=== PATIENT | female | born 1950 | race Caucasian/White ===

== ENCOUNTER 2020-12-08 09:10 | Day surgery (SDC) | payer MEDICARE, OTHER ==
[~2020-12-08] VITALS: Ht 152.4 cm; Wt 75.7 kg
[2020-12-08] VITALS (17 sets, daily range): BP systolic 110–174; BP diastolic 50–108; PULSE 59–99; TEMP 98.3
[2020-12-08] MEDS ORDERED: ZESTORETIC 12.51 TA1 PO (09:24)
[2020-12-08] MEDS ORDERED: SYNTHROID0.075 MG/T PO (09:24)
[2020-12-08] MEDS ORDERED: MULTI-VITAMIN W1 TA2 PO (09:25)
[2020-12-08] MEDS ORDERED: CALCIUM 600MG+D1 TAB PO (09:25)
[2020-12-08] MEDS ORDERED: VITAMIND3 5000 PO (09:26)
[2020-12-08] MEDS ORDERED: ULTRAM 50MG TAB50 MG PO (09:27)
[2020-12-08] MEDS ORDERED: NEURONTIN300 MG/CAP PO (09:28)
[2020-12-08] MEDS ORDERED: MELATONIN5 M1 PO (09:28)
[2020-12-08 10:35] LABS: HEMATOCRIT 43.9 % (37.0-47.0); HEMOGLOBIN 14.4 g/dl (12.5-16.0); MEAN CELL VOLUME 89 fl (80.0-100.0); MEAN CORPUSCULAR HEMOGLOBIN 29 pg (27.0-31.0); MEAN CORPUSCULAR HGB CONC 33 g/dl (33.0-37.0); MEAN PLATELET VOLUME 10.6 fl (7.4-10.4); PLATELET COUNT 277 K/mm3 (130-400); RED BLOOD COUNT 4.91 M/mm3 (4.10-5.30); REDCELL DISTRIBUTION WIDTH-CV 12.5 % (11.5-14.5)
[2020-12-08 10:48] LABS: PROTHROMBIN TIME 10.5 SECONDS (9.7-12.8)
[2020-12-08 10:51] LABS: PARTIAL THROMBOPLASTIN TIME 28.5 SECONDS (26.0-37.0)
[2020-12-08 10:52] LABS: CALCIUM 9.8 mg/dL (8.4-10.2); CREATININE, serum 0.63 (0.52-1.25)
--- NOTE | 2020-12-08 11:11 | NUR ---
SEE MERGE DOCUMENTATION FOR MEDICATION ADMINISTRATION TIMES AND INTRA/POST PROCEDURE SEDATION ASSESSMENTS.
--- NOTE | 2020-12-08 12:10 | NUR ---
PT ARRIVED TO [facility] UNIT ROOM 316 AT THIS TIME. POST OP VITALS STARTED. VITALS STABLES. INSERTION SITE CLEAN, DRY AND INTACT. MED REC UPDATED.
--- NOTE | 2020-12-08 17:14 | NUR ---
PT RESTING IN BED. HAS NO COMPLAINTS OF PAIN OR THE "BRIGHT FLASHING LIGHTS" SHE WAS SEEING AN HOUR AFTER POSTOP. 10ML RELEASED FROM THE RADIAL CUFF. VITALS ARE STABLE AND PT IS COMFORTABLE.
--- NOTE | 2020-12-08 20:30 | NUR ---
Initial shift assessment done- VSS, Tele on, Right radial heart cath site clean/dry, no drainage, no hematoma-- patient states has some chronic pain to arms/legs, states 6/10, requesting her prn Tramadol and Neurontin at this time.
[2020-12-09 00:15] VITALS: BP 120/51; PULSE 75; TEMP 98.4
[2020-12-09 03:48] VITALS: BP 133/61; PULSE 68; TEMP 97.4
--- NOTE | 2020-12-09 06:32 | NUR ---
Quiet night- no requests, right radial site with no drainage- soft,no hematoma. States slept about 3 hrs last night
[2020-12-09 07:33] VITALS: BP 109/49; PULSE 84; TEMP 97.8
[2020-12-09 07:47] VITALS: BP 109/49; PULSE 84; TEMP 97.8
[2020-12-09] MEDS ORDERED: PLAVIX 75MG TAB75 MG PO (08:12)
[2020-12-09] MEDS ORDERED: ASPIRIN E.C. 8181 MG PO (08:12)
--- NOTE | 2020-12-09 08:20 | NUR ---
PT RESTING COMFORTABLY IN BED. IV IS PATENT. MORNING MEDICATIONS GIVEN. LUNG SOUNDS CLEAR IN ALL LUND UPON AUSCULTATION. HEART RATE AND RHYTHM AND NORMAL. BOWEL SOUNDS PRESENT IN ALL FOUR QUADRANTS. PT DENIES ANY PAIN, DIZZINESS. OR VISUAL DISTURBANCES. R RADIAL WRIST HAS NO REDNESS, SWELLING, OR HEMATOMA. WRIST RESTRAINT REMOVED. PT STATES SHE HAD TROUBLE SLEEPING LAST NIGHT. WILL CONTINUE TO MONITOR.
--- NOTE | 2020-12-09 09:40 | NUR ---
DISCHARGE INSTRUCTIONS GIVEN. IV REMOVED. ALL QUESTIONS ANSWERED. PT ESCORTED OUT WITH ALL BELONGINGS, ACCOMPANIED BY .
== END 2020-12-09 09:40 | disposition home or self-care (01) ==
LOC: COL.CAR 09:10 → MEDICAL 12:30 → COL.CAR 12-09 09:40
PROVIDERS: Internal Medicine Cardiovascular Disease
DX: I25.119 Atherosclerotic heart disease of native coronary artery with unspecified angina pectoris (principal); I10 Essential (primary) hypertension; E03.9 Hypothyroidism, unspecified; G62.9 Polyneuropathy, unspecified; M17.0 Bilateral primary osteoarthritis of knee; M19.042 Primary osteoarthritis, left hand; M16.0 Bilateral primary osteoarthritis of hip; Z20.822 Contact with and (suspected) exposure to COVID-19; M19.041 Primary osteoarthritis, right hand; Z79.899 Other long term (current) drug therapy; Z79.890 Hormone replacement therapy
CPT/HCPCS: OP; C1725; C1769; C1874; C1887; C9600; J1644; J2250; J3010; J7030; Q9967

== ENCOUNTER → 2021-07-06 | Outpatient (CLI) | payer MEDICARE, OTHER ==
[~2021-07-06] MED LIST: ASPIRIN E.C. 8181 MG PO; CALCIUM 600MG+D1 TAB PO; MELATONIN5 M1 PO; MULTI-VITAMIN W1 TA2 PO; NEURONTIN300 MG/CAP PO; PLAVIX 75MG TAB75 MG PO; SYNTHROID0.075 MG/T PO; ULTRAM 50MG TAB50 MG PO; VITAMIND3 5000 PO; ZESTORETIC 12.51 TA1 PO
== END ==
LOC: COL.RAD 08:29
DX: K76.0 Fatty (change of) liver, not elsewhere classified (principal); R94.5 Abnormal results of liver function studies

== ENCOUNTER 2022-01-12 07:55 | Day surgery (SDC) | payer MEDICARE, OTHER ==
[~2022-01-12] VITALS: Ht 152.4 cm; Wt 74.7 kg
[2022-01-12] MEDS ORDERED: LIPITOR20 MG PO (09:20)
[2022-01-12] MEDS ORDERED: VESICARE 5MG5 MG PO (09:21)
[2022-01-12] MEDS ORDERED: LASIX 20MG TABL20 MG PO (09:23)
[2022-01-12] MEDS ORDERED: Metoprolol PO (09:23)
[2022-01-12] MEDS ORDERED: MULTI VITAMINS1 TAB PO (09:24)
[2022-01-12 10:25] VITALS: BP 119/76; PULSE 70; TEMP 96.6
--- NOTE | 2022-01-12 10:38 | NUR ---
1025 - PT arrives from endo procedure and was assisted ambulating from cart to chair 2:1; gait is mildy unsteady. Monitors applied. Warm blankets applied. PT denies pain and nausea. PT brought into room per pt request. PT provided snack and drink; oriented to room and call gaviria, within reach. Non-slip socks remain on. is speaking W/ PT.
[2022-01-12 10:40] VITALS: BP 115/84; PULSE 65
--- NOTE | 2022-01-12 10:48 | NUR ---
1040 - VSS. PT continues to deny pain and nausea; no vomiting. PT has finished snack and drink. PT expressed desire to be discharged. Call gaviria remains within reach if needed. remains present.
[2022-01-12 10:55] VITALS: BP 120/80; PULSE 69
[2022-01-12 10:57] VITALS: BP 140/79; PULSE 66; TEMP 97
--- NOTE | 2022-01-12 11:23 | NUR ---
1055 - VSS. IV discontinued. Catheter tip intact. Pressure bandage applied. NO redness or swelling noted. DC instructions and educational material revewed w/ PT who verbalized understanding and signed the related paperwork. Questions answered to PT satisfaction. PT refused RN assistance changing, however, call gaviria remains within reach if needed. remains present and states will assist if needed.
--- NOTE | 2022-01-12 11:47 | NUR ---
1130 - PT dismissed from endo via wheelchair to the PT entrence by Davina MARTINS. PT has DC packet and personal belonings; and was tranferred into the care of her Artur, who is driving private car.
== END 2022-01-12 11:40 | disposition home or self-care (01) ==
LOC: SDCO 07:55
DX: K59.00 Constipation, unspecified (principal); K64.0 First degree hemorrhoids
CPT/HCPCS: J2704; J7030

== ENCOUNTER 2023-05-12 08:14 | Day surgery (SDC) | payer MEDICARE, OTHER ==
[~2023-05-12] VITALS: Ht 152.4 cm; Wt 76.5 kg
[2023-05-12] VITALS (11 sets, daily range): BP systolic 90–146; BP diastolic 50–80; PULSE 50–67; TEMP 98.3
[~2023-05-12 08:14] MED LIST changes: +IMDUR 60MG60 MG/TAB PO; +KAPSPARGO SPRIN25 MG PO; +LASIX 20MG TABL20 MG PO; +LIPITOR 80MG80 MG PO; +LIPITOR20 MG PO; +MULTI VITAMINS1 TAB PO; +VESICARE 5MG5 MG PO
[2023-05-12] MEDS ORDERED: VITAMIN D 50,1.25 MG PO (09:25)
[2023-05-12] MEDS ORDERED: ULTRAM 50MG TAB50 MG PO (09:26)
[2023-05-12] MEDS ORDERED: NEURONTIN300 MG/CAP PO (09:27)
[2023-05-12 10:26] LABS: HEMATOCRIT 43.7 % (37.0-47.0); HEMOGLOBIN 14.2 g/dl (12.5-16.0); MEAN CELL VOLUME 91 fl (80.0-100.0); MEAN CORPUSCULAR HEMOGLOBIN 30 pg (27-31); MEAN CORPUSCULAR HGB CONC 33 g/dl (33.0-37.0); MEAN PLATELET VOLUME 10.7 fl (7.4-10.4); PLATELET COUNT 203 K/mm3 (130-400); PROTHROMBIN TIME 10.8 SECONDS (9.7-12.8); RED BLOOD COUNT 4.79 M/mm3 (4.10-5.30); REDCELL DISTRIBUTION WIDTH-CV 12.7 % (11.5-14.5)
[2023-05-12 10:29] LABS: PARTIAL THROMBOPLASTIN TIME 26.6 SECONDS (26.0-37.0)
--- NOTE | 2023-05-12 10:32 | NUR ---
Refer to [facility] [employer] report for procedural sedation/notes
[2023-05-12 10:48] LABS: CALCIUM 9.6 mg/dL (8.4-10.2); CREATININE, serum 0.72 mg/dL (0.57-1.11); POTASSIUM 4.2 mmol/L (3.5-4.5)
[2023-05-12] MEDS ORDERED: IMDUR 60MG60 MG/TAB PO (11:48)
[2023-05-12] MEDS ORDERED: RANEXA 500MG T500 MG PO (11:48)
--- NOTE | 2023-05-12 12:00 | NUR ---
PT RETURNED FROM [facility] VIA BED, AWAKE AND ALERT, HAS NO C/O PAIN. HOB ELEVATED, CALL LIGHT IN REACH, DOES HAVE 2X2 DRESSING OVER RADIAL SITE, AND RADIAL BAND ON WITH NO SWELLING OR BLEEDING. TAKES WATER.
--- NOTE | 2023-05-12 12:15 | NUR ---
PT USED BEDPAN, VOIDED APPROX 300 CC YELLOW URINE
--- NOTE | 2023-05-12 13:45 | NUR ---
PT SITS UP IN BED, HAD LUNCH, NO C/O OR CHANGES FROM ASSESSMENT
--- NOTE | 2023-05-12 14:45 | NUR ---
air released from band over 20 min slowly with no bleeding or swelling, bandaid placed by 2x2 and wrapped in coban for support. pt up to b/r, gait steady. Pt called son who will pick her up later, discussed she would not be able to drive home with moderate sedation.
--- NOTE | 2023-05-12 15:30 | NUR ---
int d'cd intact, pt up in room dressed, no c/o, will wait on ride home, report to Faith MARTINS.
--- NOTE | 2023-05-12 16:39 | NUR ---
PT ASSISTED TO MAIN LOBBY VIA WHEELCHAIR. SON WAS AT FRONT LOBBY TO DRIVE PT HOME. DRESSING CLEAN DRY AND INTACT AND PT FREE FROM ACUTE CONCERNS AND COMPLAINTS UPON DISCHARGE.
== END 2023-05-12 16:40 | disposition home or self-care (01) ==
LOC: COL.CAR 08:14
PROVIDERS: Internal Medicine Cardiovascular Disease
DX: I25.10 Atherosclerotic heart disease of native coronary artery without angina pectoris (principal); I25.82 Chronic total occlusion of coronary artery; I10 Essential (primary) hypertension; E78.5 Hyperlipidemia, unspecified; Z98.61 Coronary angioplasty status; Z79.82 Long term (current) use of aspirin; Z79.899 Other long term (current) drug therapy
CPT/HCPCS: C1725; C1769; C1887; J0583; J1644; J2250; J3010; Q9967